=== PATIENT | male | born 1955 | race Caucasian/White ===

== ENCOUNTER 2025-08-04 02:41 | Day surgery (SDC) | payer MEDICARE, SELFPAY ==
--- NOTE | 2025-07-25 07:01 | P.HP_ITS ---
History of Present Illness History of Present Illness Consent: Risks, benefits, and alternatives have been discussed and questions answered. Patient agrees to proceed with procedure. Chief complaint: elevated PSA Narrative: Macario Johnson is a 70 year old male who used to live in [place] where he saw a urologist in [place]. ?He has had transient PSA elevations which have never persisted and, as a result, he has never had prostate biopsy. ?He is back with a PSA of 5.6. ?He has minimal prostatism, not to the point opting for medication Addendum Note?(Jim Willams MD; 04/14/2025 12:13 PM) PSA: 6.1 / up slightly from 5.6. Let's repeat PSA (no office visit) in 6-8 weeks before deciding about biopsy. Addendum Note?(Jim Willams MD; 06/08/2025 12:13 PM) PSA: 5.6 / still high. ? Will discuss bx. +/- mpMRI Addendum Note?(Jim Willams MD; 06/08/2025 4:18 PM) Spoke with patient about his persistent PSA elevation. ?We are going to set up a prostate MRI and he is aware that he will need a biopsy, one way or the other. Addendum Note?(Jim Willams MD; 06/28/2025 6:41 AM) 06/27/25: ?mpMRI Prostate: PI-RADS 4: Right ant. TZ mid gland / possible JAMESON Addendum Note?(Jim Willams MD; 06/29/2025 3:59 PM) I discussed abnormal prostate MRI with patient and will make arrangements for a UroNav prostate biopsy Review of Systems Cardiovascular: Cardiovascular: Denies chest pain, Denies lightheadedness, Denies palpitations and Denies dyspnea Respiratory: Respiratory: Denies dyspnea Gastrointestinal: Gastrointestinal: Denies diarrhea, Denies nausea and Denies vomiting Genitourinary: Genitourinary: Denies hematuria and Denies dysuria Endocrine: Endocrine: Denies palpitations PMF Past Medical History Medical History Hypertension Surgical History Surgical History S/P foot surgery, left Family History Family History Father Diabetes mellitus Heart problem Mother Hypertension Social History Social History Social History: Retired Smoking status: Never smoker Alcohol intake: never Substance use type: does not use Lack of Transportation: No Lack of Food: Never True Current Housing: I Have Housing Concerned About Future Housing: No Difficulty Paying Gas/Electric Bills: No Difficulty Paying for Meds: No Currently Unemployed: No Education: High School Diploma/GED Living arrangements: alone Meds Home Medications and Allergies Home Medications ?Medication ?Instructions ?Recorded ?Confirmed ?Type amlodipine 10 mg-benazepril 40 mg 1 cap PO DAILY #90 c aps 08/31/24 02/16/25 Rx capsule hydrochlorothiazide 25 mg tablet 25 mg PO DAILY #90 ta bs 08/31/24 02/16/25 Rx nebivolol 5 mg tablet 5 mg PO DAILY #90 tabs 08/3102/16/25 Rx Allergies Allergy/AdvReac Type Severity Reaction Status Date / Time No Known Allergies Allergy Verified 02/16/25 10:41 Exam Const: General: no acute distress Resp: Effort & Inspection: normal respiratory effort GI: Inspection: non-distended GI Palp: No abdominal tenderness and No Gu arding due to palpation present (GI) Auscultation: normal bowel sounds Assessment and Plan Assessment and plan (1) Elevated PSA: Code(s): R97.20 - Elevated prostate specific antigen [PSA] Status: Acute Assessment and Plan: * UroNav prostate biopsy
[2025-07-29 12:35] VITALS: BMI 46.9
--- NOTE | 2025-07-29 12:46 | PC.NURSE ---
[facility] has started construction of its new state of the art ER which will open Spring 2026. With this, we anticipate parking may be a challenge for some our surgical patients and families. Parking spaces are limited but are available for all Surgical, obstetrics, and ER patients sharing this lot. If you arrive and find you are having a hard time finding a parking space, please note that we understand the challenges, please drive around the hospital and park near Hospital Entrance 1. When you enter this entrance, you can ask a volunteer to direct or take you back to the surgical waiting area to check in. We appreciate everyone?s understanding of these expected challenges while we build for your future. Report to the Outpatient Waiting Room, entrance under the green pavilion located off [address], at time _09:15am on date ___08/04/25____. Planned Procedure Time: ___11:15am .? Time changes happen often and if your time is changed the preop area will call you the afternoon before. - You and your visitor will be asked to self-screen and do not enter if you have any COVID symptoms. Please call surgeon if you need to reschedule. - A mask is optional within the hospital at this time. Patients may have clear liquids (water, carbonated beverages, clear teas, apple juice) until 3 hours prior to surgery with a maximum of 20 ounces. - No food from midnight until time of surgery and no smoking, or chewing tobacco (or any form of nicotine). No chewing gum, candy or mints. (0815am) Take only the following medications with a SIP of water on the morning of surgery: __Nebivolol DO NOT STOP ANY OF YOUR OTHER PRESCRIPTION MEDICATIONS PRIOR TO SURGERY EXCEPT THE FOLLOWING Hold all vitamins, supplements, Herb, Probiotics, NSAIDS, ASPIRIN, MOTRIN for [address] Willams. Date to take last dose__07/29/25 (talking to pt today) Pt to check w Letty on PREP info w Enema prior to coming in that DOS. Please no make-up, nail burkinan, hairspray, perfume, deodorant, or body powder the day of surgery.? No jewelry (including any body piercings) or valuables the day of surgery, leave them at home.? Please take a shower or bath the night before, or the morning of, surgery with an antibacterial soap.? Wear comfortable, loose fitting clothing.? - Jewelry must be removed prior to entering the operating room.? Rings and piercings that are not removed may be cut off. - The hospital will not accept responsibility for valuables.? - Please leave all valuables, including medications, at home the day of surgery. If you are going home after surgery, a licensed semi driver must drive you home.? - NO public transportation without another adult if you receive anesthesia. - We recommend that an adult stay with you for 24 hours following discharge. - We also recommend that you do not drive, make important decision, drink alcoholic beverages, or take any drugs that were not prescribed by your health care provider for at least 24 hours after your discharge time. Follow any additional instructions given to you from your surgeon. Telephone instructions given to ___Patient and asked if any additional questions and then verbalized understanding. Patient advised to call surgeon office or pre surgery nurse liaison [phone] if any additional questions.
--- OUTSIDE RECORDS SUMMARY | 2025-08-04 02:44 | XMS_ITS | Clinical Summary ---
Author Organization [facility] Address [address] [place] [id number] Care Team Providers Care Residential Care Facility Manager Name Role Phone Unavailable Primary Care Provider Unavailabl e Social History Tobacco Use Types Packs/Day Years Used Date Smoking Tobacco: Never Assessed Sex and Gender Information Value Date Recorded Sex Assigned at Not on file Legal Sex Male 9:35 AM [employer]LEVATOR [employer] Gender Identity Not on file Sexual Orientation Not on file Plan of Treatment Health Maintenance Due Date Last Done Comments Hepatitis C Virus (HCV) Screening 1955 TdaP Immunization 1955 Cologuard 2001 Colonoscopy 2001 Colorectal Cancer Screening 2001 Immunochemical Fecal Occult Blood 2001 Pneumococcal Immunization (5 0+ years) (1 of 1 - PCV) 2006 Zoster Immunization (1 of 2) 2006 Influenza Immunization (#1) 2025 SARS-COV-2 Immunization ( - season) 2025 Respiratory Syncytial Virus (RSV) Immunization (Adult) (1 - 1-dose 75+ series) 2031 Hepatitis B Immunization Aged Out No longer eligible based on patient's age to complete this topic Human Papillomavirus (HPV) Immunization Aged Out No longer eligible b ased on patient's age to complete this topic Meningococcal Immunization (ACWY) Aged Out No longer eligible based on patient's age to complete this topic Rotavirus Immunization Aged Out No lo nger eligible based on patient's age to complete this topic
--- OUTSIDE RECORDS SUMMARY | 2025-08-04 02:44 | XMS_ITS | Patient Health Record ---
Author Organization [facility] Address [address] [place] [address] Care Team Providers Care Tube Skiver Name Role Phone Walter Shukla Unavailable [phone] Mike Patiño MD Unavailable Unavailable Reason For Referral No Information Medications Medication SIG (Take, Route, Frequency, Duration) Notes Start Date End Date Status Lotrel 10-40MG Oral; Duration: 0 Days Notes: Lotrel( 10-40MG Oral ) Active -Hx Entry 11/03/2013 Active hydroCHLOROthiazide 12.5MG Oral; Duratio n: 0 Days Notes: Hydrochloroth iazide( 12.5MG Oral ) Active -Hx Entry 11/03/2013 Active Immunizations Vaccine Route Administration Date Status Comme nts FLU IMMUNIZATION NOT PREVIOU SLY ADMINISTERED Unknown 04/29/2019 Refused Social History Tobacco Use: Social History Observation Description Date Details (start date - stop date) Never Smoker NA - NA Social History Drugs/Alcohol: Social Info Question Answer Notes Alcohol Screen (Audit-C) Did you have a drink containing alcohol in the past year? No Points 0 Interpretation Negative Drugs Have you used drugs other than those for medical reasons in the past 12 months? No Tobacco Use: Social Info Question Answer Notes Tobacco Use/Smoking Patient is a nonsmoker Problems Problem Type SNOMED Code ICD Code Onset Dates Problem Status W/U Status Risk Notes Problem History of polyp of colon (situation) (803798175) Personal history of colonic polyps (V12.72) 11/03/2013 Active confirmed (Tyler) HISTORY OF COLON POLYPS (V12.72) Problem History of polyp of colon (situation) (024846583) Personal history of colonic polyps (Z86.010) Active confirmed Plan Of Treatment Pending Test Test Name Order Date COLONOSCOPY 04/29/2019 CONSENT: The patient underst ands the nature of the planned procedure(s), as well as the(ir) indications, risks, benefits, alternatives, including but not limited to the risks related to bleeding, perforation, sedation, and missed lesions. 04/29/2019 Insurance Providers Payer Name Payer Address Payer Phone Subscriber Number Group Number Insured Name Patient Relationship to Insured Coverage Start Date Coverage End Date [employer] [place] [address] [place] [phone] [id number] Macario Johnson Self - patient is the insured Medical (General) History Surgical History Surgery Date(Month/Year) Hospitalization History Reason Date(Month/Year) CS 2009- two polyps
--- NOTE | 2025-08-04 06:56 | WPDHPUPDATE1 ---
History and Physical Update Update Date/Time: 08/04/25 06:56 History and Physical has been reviewed, including an updated exam of the patient. There are NO changes in the patient's condition. Risks, benefits, and alternatives have been discussed and questions answered. Patient agrees to proceed with procedure.
[2025-08-04 09:50] VITALS: BP 155/68; PULSE 62; RESP 18; TEMP 36.9; O2SAT 95
--- NOTE | 2025-08-04 10:22 | WPDANESEPPF ---
Anes - Initial Pre Proc Eval Procedure: Operation Date: 08/04/25 11:15 Proposed Procedures p Trans Rectal Ultrasound Fusion Guided Prostate Biopsy - Jim Willams MD Date/Time: 08/04/25 10:22 Surgeon: Jim Willams MD Pre Op Diagnosis: elevated PSA Patient Data Age: 70 Gender: M Height: 1.83 m Weight: 157 kg Allergies Allergy/AdvReac Type Severity Reaction Status Date / Time No Known Allergies Allergy Verified 07/29/25 12:32 Home Medications ?Medication ?Instructions ?Recorded ?Confirmed ?Type amlodipine 10 mg-benazepril 40 mg 1 cap PO DAILY #90 caps 08/31/24 08/04/25 Rx capsule hydrochlorothiazide 25 mg tablet 25 mg PO DAILY #90 tabs 08/31/24 08/04/25 Rx nebivolol 5 mg tablet 5 mg PO DAILY #90 tabs 08/31/24 08/04/25 Rx naproxen sodium 220 mg capsule 220 mg PO ONCE PRN pain 07/29/25 07/29/25 History (Aleve) Held on 07/29/25. Instructions: .Provider Order Patient hx anesthesia problems: none Family hx anesthesia problems: none Results Review: All pre-operative results and documents have been reviewed as part of the pre-operative evaluation. [facility] Past Medical History Medical History (Updated 08/04/25 @ 10:22 by Randolph Pastor MD) Morbid obesity Hypertension Surgical History Surgical History S/P foot surgery, left Family History Family History Father Diabetes mellitus Heart problem Mother Hypertension Social History Social History Social History: Retired Smoking status: Never smoker Second hand tobacco smoke exposure: Yes Alcohol intake: never Substance use: never Substance use type: does not use Lack of Transportation: No Lack of Food: Never True Current Housing: I Have Housing Concerned About Future Housing: No Difficulty Paying Gas/Electric Bills: No Difficulty Paying for Meds: No Currently Unemployed: No Education: High School Diploma/GED Living arrangements: alone Spiritual care concerns: No Anes - Eval Final PreProcedure Day of Procedure 08/04/25 10:22 Patient weight: morbidly obese Heart: regular rate and rhythm Lungs: clear to auscultation Airway: Mallampati scale class II Neurological: alert and oriented Last oral intake: >/= 8 hours ASA classification: III Emergent: no Anesthetic plan: proceed Anesthesia type and monitoring: general LMA and standard monitoring Results Review: All pre-operative results and documents have been reviewed as part of the pre-operative evaluation. Informed Consent: The patient's anesthetic plan and its attendant risks and benefits were discussed with the patient/family/POA. Questions were solicited and answers provided to the satisfaction of the patient/family/POA.
--- NOTE | 2025-08-04 10:36 | S_PTH ---
PATIENT: Macario Johnson [facility] U[id number] AGE/SX: 70/M ROOM: RE08/04/[address]: Jim Willams MD : 1955 BED: DIS: 08/04/2025 SPEC #: [id number] RECD: 08/04/25 12:04 STATUS: DAVI RELyn #: [id number] ALESHIA: 08/04/25 10:[address]: Jim Willams DEPT: [facility] Surgical RECD BY: Gracia Cota MLT, ([facility]) ENTERED: 08/04/25 12:07 SP TYPE: Surgical OTHR DR: María Elena Deshpande PA-C Tissues: A - Prostate Bx B - Prostate Bx C - Prostate Bx D - Prostate Bx E - Prostate Bx F - Prostate Bx G - Prostate Bx H - Prostate Bx I - Prostate Bx J - Prostate Bx K - Prostate Bx L - Prostate Bx M - Prostate Bx Procedures: Unstained Slides Hematoxylin and Eosin Stain Prostate Biopsy PIN 4 Prostate Triple Stain
[2025-08-04] MEDS: LACTATED RINGERS 1,000 ML 30 ML IV CONT (10:37)
[2025-08-04] MEDS: cefTRIAXone 1 GM in SODIUM CHLORIDE 0.9% IV 50 ML 100 ML IVPB (10:48)
[2025-08-04 11:11] LABS: Anion Gap 4 mmol/L (4-12); Blood Urea Nitrogen 18 mg/dL (9-20); Calcium 9.1 mg/dL (8.4-10.2); Carbon Dioxide 27 mmol/L (22-30); Chloride 106 mmol/L (98-107); Estimated CRCL calculation 104 ml/min; Estimated Glomerular Filt Rate > 60; Glucose 101 mg/dL (65-110); Potassium 4.1 mmol/L (3.4-5.0); Sodium 137 mmol/L (137-145)
[2025-08-04 11:14] VITALS: BP 128/68; PULSE 62; RESP 16; O2SAT 97
--- NOTE | 2025-08-04 11:34 | P.OP_ITS ---
Procedure Note - Detailed Date of Procedure 08/04/25 Pre-op Diagnosis Elevated PSA Post-op Diagnosis Same Procedure Performed UroNav prostate biopsy Surgeon Jim Willams MD Anesthesia MAC Description of Procedure Patient is brought to the operative suite where he is positioned in the left lateral position. Systemic sedation is administered per the anesthesia department. Surgical time-out is undertaken and it's verified the patient has received preoperative antibiotics. Transrectal ultrasonography is undertaken with a standard transrectal probe. The [employer] system is used to superimpose his previously obtained mpMRI prostate images on the real-time transrectal ultrasond images. Prostate volume is calculated at 25cc. On the previous mpMRI there are 1 region of interest. Using the transrectal needle design for prostate biopsies 3 cores from each region of interest her obtain. We then proceeded with a standard 12 core prostate biopsy. Transrectal probe was removed and patient taken to recovery room having tolerated the procedure well. Blood loss was less than 10 cc.
[2025-08-04 11:45] VITALS: BP 129/66; PULSE 60; RESP 16
[2025-08-04 12:10] VITALS: BP 139/71; PULSE 58; RESP 16
== END 2025-08-04 12:15 | disposition home or self-care (01) ==
PROVIDERS: Anesthesiology; PCP Student in an Organized Health Care Education/Training Program; Visit Provider Urology
PROC: (CPT 55700; principal; 2025-08-04 11:15)
DX: C61 Malignant neoplasm of prostate (principal); N42.31 Prostatic intraepithelial neoplasia; R97.20 Elevated prostate specific antigen [PSA]; I10 Essential (primary) hypertension; E66.01 Morbid (severe) obesity due to excess calories; Z68.42 Body mass index [BMI] 45.0-49.9, adult; Z79.1 Long term (current) use of non-steroidal anti-inflammatories (NSAID); Z98.890 Other specified postprocedural states; Z82.49 Family history of ischemic heart disease and other diseases of the circulatory system
CPT/HCPCS: 76872; 55700; 36415; 80048; 88344; G0416; J0696; J2003; J2704; J3010; J7120